=== PATIENT | male | born 1980 | race Caucasian/White ===

== ENCOUNTER 2022-12-15 23:37 | Emergency (ER) | payer OTHER ==
[~2022-12-15] VITALS: Ht 188 cm; Wt 102.1 kg
--- NOTE | 2022-12-16 00:45 | NUR ---
Dr. Ramachandran evaluated patient at bedside. MSE in progress.
[2022-12-16] MEDS ORDERED: IV NORMAL SALINE 500 ML BAG IV ONE ×2 (01:30→04:15)
[2022-12-16] MEDS ORDERED: MORPHINE SULFATE 4 MG/1 ML DISP.SYRIN IV ONE (01:30)
[2022-12-16] MEDS ORDERED: CLINDAMYCIN PHOSPHATE IV 600 MG in IV DEXTROSE 5% 100 ML IV ONE (01:30)
[2022-12-16] MEDS ORDERED: CEFTRIAXONE 2 G in IV DEXTROSE 5% 100 ML IV ONE (01:30)
[2022-12-16 01:34] LABS: HEMATOCRIT 39.5 % (36.7-47.1); MEAN CORPUSCULAR HEMOGLOBIN 32.9 uug (23.8-33.4); MEAN CORPUSCULAR VOLUME 95.7 fL (73.0-96.2); PLATELET COUNT (AUTO) 268 K/uL (152-348)
[2022-12-16] MEDS ORDERED: CEFTRIAXONE 1 G VIAL ONE (01:34)
[2022-12-16] MEDS ORDERED: MORPHINE SULFATE 4 MG/1 ML DISP.SYRIN ONE (01:34)
[2022-12-16 01:44] LABS: CREATININE 0.9 mg/dL (0.6-1.3); POTASSIUM 3.6 mmol/L (3.5-5.1)
[2022-12-16 01:50] LABS: BILIRUBIN,TOTAL 0.3 mg/dL (0.2-1.0); TOTAL PROTEIN, SERUM 7.4 g/dL (6.4-8.2)
[2022-12-16] MEDS ORDERED: IOHEXOL 300MG/ML 100 ML INFUS..BTL ONE (01:56)
[2022-12-16] MEDS ORDERED: SWABABLE VALVE TRANSFER SET EA MC ONE (01:56)
[2022-12-16] MEDS ORDERED: IV NORMAL SALINE 250 ML IV ONE (01:56)
--- NOTE | 2022-12-16 02:03 | NUR ---
Patient out of unit for ct scan via wheelchair.
[2022-12-16] MEDS ORDERED: ONDANSETRON ODT 4 MG TAB.RAPDIS ONE (02:06)
[2022-12-16] MEDS ORDERED: ONDANSETRON ODT 4 MG TAB.RAPDIS SL ONE (02:15)
--- NOTE | 2022-12-16 02:20 | NUR ---
Patient back from ct scan with no distress noted.
[2022-12-16] MEDS ORDERED: KETOROLAC TROMETHAMINE 15 MG INJ IVP ONE (03:15)
[2022-12-16] MEDS ORDERED: CLINDAMYCIN 600 MG PIGGYBACK**ER OMNI IV ONE (03:20)
[2022-12-16] MEDS ORDERED: KETOROLAC TROMETHAMINE 15 MG INJ ONE (03:20)
--- NOTE | 2022-12-16 03:30 | NUR ---
Patient ambulated to the bathroom independently. Activity tolerated well
[2022-12-16] MEDS ORDERED: BACITRACIN ZINC OINT 15 GM TUBE TOP STA (03:42)
[2022-12-16] MEDS ORDERED: BACITRACIN ZINC OINT 15 GM TUBE ONE (03:45)
--- NOTE | 2022-12-16 04:02 | NUR ---
Bacitracin zinc oint applied to hands bilaterally
[2022-12-16] MEDS ORDERED: ACETAMINOPHEN 325 MG TABLET PO ONE (04:45)
[2022-12-16] MEDS ORDERED: ACETAMINOPHEN 325 MG TABLET ONE (04:48)
[2022-12-16] MEDS ORDERED: TIZA4TAB5 PO (06:17)
[2022-12-16] MEDS ORDERED: AMPH30CA3 PO (06:17)
[2022-12-16] MEDS ORDERED: GABA600T12 PO (06:17)
[2022-12-16] MEDS ORDERED: LOSA100T31 PO (06:17)
[2022-12-16] MEDS ORDERED: ARIP2TAB3 PO (06:17)
[2022-12-16] MEDS ORDERED: ALPR1TAB7 PO (06:17)
[2022-12-16] MEDS ORDERED: OMEP20TA20 PO (06:17)
[2022-12-16] MEDS ORDERED: CELE200C PO (06:17)
[2022-12-16] MEDS ORDERED: EMTR1TAB13 PO (06:17)
[2022-12-16] MEDS ORDERED: DULO60CA45 PO (06:17)
[2022-12-16] MEDS ORDERED: AMOX-430 PO (06:28)
[2022-12-16] MEDS ORDERED: NAPR-1192 PO (06:29)
--- NOTE | 2022-12-16 06:47 | NUR ---
Patient discharged to home in stable condition. Written and verbal after care instructions given. Patient verbalizes understanding of instructions. Stressed follow up or return to ER for worsening s/s.
[2022-12-16 06:50] VITALS: BP 145/85
== END 2022-12-16 06:51 | disposition home or self-care (01) ==
LOC: ER 23:49
DX: S61.452A Open bite of left hand, initial encounter (principal); S61.451A Open bite of right hand, initial encounter; W55.01XA Bitten by cat, initial encounter; Y92.89 Other specified places as the place of occurrence of the external cause; M79.89 Other specified soft tissue disorders; K21.9 Gastro-esophageal reflux disease without esophagitis; Z79.899 Other long term (current) drug therapy; D72.829 Elevated white blood cell count, unspecified; R73.9 Hyperglycemia, unspecified
CPT/HCPCS: 99285; 73201; 96365; 96375; 96367; 96361; 87426; 80053; 85025; 85651; 86140; 87040 ×2; 36415; 73130; 83605; J0696; J3490; J1885; Q9967; J2270; J7040 ×2; A4663; Q0162